=== PATIENT | female | born 1975 | race Caucasian/White ===

== ENCOUNTER 2017-04-24 20:19 | Emergency (ER) | payer OTHER ==
[~2017-04-24] VITALS: Ht 160 cm; Wt 49.9 kg
[2017-04-24 20:30] VITALS: BP 150/56
[2017-04-24] MEDS ORDERED: NAPROXEN 500 MG TABLET PO STA (20:48)
--- NOTE | 2017-04-24 20:55 | PHYS DOC ---
Past Medical History Past Medical History: Endometriosis Past Surgical History: Tubal ligation Alcohol Use: None Drug Use: None Adult General Chief Complaint Chief Complaint: SHOULDER INJURY HPI HPI Patient is a 41 year old female with a history of endometriosis who presents with moderate right shoulder pain that began today while moving furniture. Patient states the pain is diffusely throughout the right shoulder. Patient states the pain is worse on movement. Review of Systems Review of Systems Constitutional: Denies fever or chills [] Eyes: Denies change in visual acuity, redness, or eye pain [] Musculoskeletal: Right shoulder pain Integument: Denies rash or skin lesions [] Neurologic: Denies headache, focal weakness or sensory changes [] Endocrine: Denies polyuria or polydipsia [] Current Medications Current Medications Current Medications Medications (Trade) Dose Ordered Sig/[place] Start Time Stop Time Status Last Admin Dose Admin Acetaminophen/ Hydrocodone Bitart (Lortab 5/325) 1 tab 1X ONCE 04/24/17 21:15 04/24/17 21:16 DC 04/24/17 21:25 1 TAB Cyclobenzaprine HCl (Flexeril) 10 mg 1X ONCE 04/24/17 21:15 04/24/17 21:16 DC 04/24/17 21:25 10 MG Naproxen (Naprosyn) 500 mg 1X STAT 04/24/17 20:48 04/24/17 20:53 DC 04/24/17 21:25 500 MG Allergies Allergies Allergies Coded Allergies Type Severity Reaction Last Updated Verified No Known Drug Allergies 01/12/14 No Physical Exam Physical Exam Constitutional: Well developed, well nourished, no acute distress, non-toxic appearance. [] HENT: Normocephalic, atraumatic, bilateral external ears normal, oropharynx moist, no oral exudates, nose normal. [] Skin: Warm, dry, no erythema, no rash. [] Back: No tenderness, no CVA tenderness. [] Extremities: Right shoulder with no obvious deformity. Tenderness diffusely on the right shoulder especially anterior aspect of the ACM joint. No clavicle tenderness on exam, no scapular tenderness on exam. Full passive range of motion to the right shoulder with adequate abduction and adduction of the right shoulder, adequate plantar flexion and dorsiflexion of the right forearm. +2 right radial pulse. Adequate radial medial and ulnar sensation to the right upper extremity. +2 right radial pulse. Neurologic: Alert and oriented X 3, normal motor function, normal sensory function, no focal deficits noted. [] Psychologic: Affect normal, judgement normal, mood normal. [] Current Patient Data Vital Signs Vital Signs Date Time Temp Pulse Resp B/P (MAP) Pulse Ox O2 Delivery O2 Flow Rate FiO2 04/24/17 21:25 16 Room Air 04/24/17 20:30 98.1 73 99 98.1 EKG EKG [] Radiology/Procedures Radiology/Procedures [] Course & Med Decision Making Course & Med Decision Making Pertinent Labs and Imaging studies reviewed. (See chart for details) Patient is in the ED with right shoulder pain that began after moving furniture. Right shoulder x-rays interpreted by Dr. Horn negative for any acute findings. Patient has right shoulder strain. Was placed in a immobilizer the ED by the electrical design technician. Neurovascular exam done by me is normal, cap refill less than 2 seconds. Ice elevation encouraged. Discharged with cyclobenzaprine and Voltaren. Follow-up with orthopedic doctor in one week. Dragon Disclaimer Dragon Disclaimer This electronic medical record was generated, in whole or in part, using a voice recognition dictation system. Departure Departure Impression: Primary Impression: Strain of right shoulder Disposition: HOME, SELF-CARE Condition: STABLE Referrals: ERIC PRIETO MD (PCP) MAXI DIMAS MD Follow-up in one week Patient Instructions: Shoulder Sprain Additional Instructions: You were seen for right shoulder strain. Ice and elevate the extremity. Wear the sling as needed and tolerated. Do not leave the right upper extremity in the sling more than an hour per day. Ensure you remove it and take it through full range of motion as well as dangle it down to prevent frozen shoulder. Follow-up with the provided orthopedic doctor in one week if pain continues. Scripts Cyclobenzaprine Hcl (CYCLOBENZAPRINE HCL) 10 Mg Tablet 1 TAB PO TID, #30 TAB Prov: DONAVON CAMPBELL APRN 04/24/17 Diclofenac Sodium (DICLOFENAC SODIUM) 50 Mg Tablet. 1 TAB PO BID, #60 TAB 1 Refill Prov: DONAVON CAMPBELL [employer] 04/24/17 Problem Qualifiers Primary Impression: Strain of right shoulder Encounter type: initial encounter Qualified Codes: S46.911A - Strain of unspecified muscle, fascia and tendon at shoulder and upper arm level, right arm , initial encounter DONAVON CAMPBELL [employer] Apr 24, 2017 20:55
[2017-04-24] MEDS ORDERED: CYCLOBENZAPRINE 10 MG TABLET. PO ONE (21:15)
[2017-04-24] MEDS ORDERED: HYDROcodone/APAP 5/325MG 1 TAB TABLET PO ONE (21:15)
[2017-04-24] MEDS ORDERED: CYCL10TA2 PO (21:40)
[2017-04-24] MEDS ORDERED: DICL50TA4 PO (21:40)
--- NOTE | 2017-04-25 07:57 | RAD ---
Indication injury, pain. Internally and externally rotated views of the right shoulder as well as a Y view were obtained. No bony abnormality is seen
== END 2017-04-24 21:51 | disposition home or self-care (01) ==
LOC: ER 20:19
DX: S46.911A Strain of unspecified muscle, fascia and tendon at shoulder and upper arm level, right arm, initial encounter (principal); X50.9XXA Other and unspecified overexertion or strenuous movements or postures, initial encounter; Y93.89 Activity, other specified; Y99.8 Other external cause status; Y92.89 Other specified places as the place of occurrence of the external cause
CPT/HCPCS: 29105; 73030; 99284-25

== ENCOUNTER → 2017-05-03 | Outpatient (CLI) | payer OTHER ==
[2017-04-24 20:30] VITALS: BP 150/56
[~2017-05-03] MED LIST: CYCL10TA2 PO; DICL50TA4 PO
--- NOTE | 2017-05-03 16:05 | KCIC ---
MR of the right shoulder HISTORY: Right shoulder pain. New symptoms for the last week. Previous right shoulder surgery. Pain and bump on the right shoulder since a fall. TECHNIQUE: Routine multiplanar sequences are obtained. FINDINGS: Mild edema around the acromioclavicular joint. Bone marrow edema within the outer clavicle and to lesser extent the anterior acromion. The coracoclavicular ligaments are intact. No significant joint separation. Small fluid signal nodule just above the joint compatible with a small synovial cyst, measures 6 mm x 13 mm x 5 mm. Suture anchor identified at the anterior humeral head compatible with prior rotator cuff repair. Mild tendinosis signal within the anterior supraspinatus tendon. No evidence of measurable tear or rupture of the rotator cuff. Trace subdeltoid bursal fluid. Signal within the superior labrum, compatible with a small tear. Anterosuperior labral deficiency with a thick cordlike middle glenohumeral ligament, compatible with a [place] complex, normal variant. Biceps tendon is intact. No bone lesion or acute fracture. No acute soft tissue injury. IMPRESSION: 1. Small superior labral tear. 2. Reactive edema at the acromioclavicular joint, could be due to macro trauma or repetitive stress injury. 3. Small synovial cyst just superior to the acromioclavicular joint. Electronically signed by: Juan Carlos King MD (05/03/2017 4:02 PM)
== END | disposition home or self-care (01) ==
LOC: KCIC MRI 14:33
PROVIDERS: ATTEND Family Medicine
DX: M25.511 Pain in right shoulder (principal)
CPT/HCPCS: 73221